=== PATIENT | male | born 2000 ===

== ENCOUNTER 2018-05-30 19:07 | Emergency (ER) | payer BC, OTHER ==
[2018-05-30] MEDS ORDERED: LORazepam TAB(*) 1 MG PO ONE (19:27)
--- NOTE | 2018-05-30 19:32 | ED ---
Psychiatric Complaint - HPI Summary HPI Summary: 17-year-old male presents with anxiety to the ED today. He states that he woke up and started having this chest pressure and feeling shaky. he felt like he had palpitations. States he's had this before but never this bad. States that his symptoms are intermittent. Does not change when takes a deep breath. He denies any shortness breath. No abdominal pain. No nausea vomiting. He denies any known triggers. He has history of anxiety and depression and arthritis. He denies any suicidal or homicidal ideation. he has no plan. He has no family history of blood clots or cardiac disease. no recent illness. Nothing makes his symptoms better or worse. No recent travel. denies any current drug or ETOH use. patient is voluntary and does not want a mental health exam at this time. - History Of Current Complaint Chief Complaint: EDPsychosocial Time Seen by Provider: 05/30/18 19:22 - Allergies/Home Medications Allergies/Adverse Reactions: Allergies Allergy/AdvReac Type Severity Reaction Status Date / Time No Known Allergies Allergy Verified 05/30/18 19:11 Home Medications: Home Medications Etanercept [Enbrel] 25 mg SUBCUT WEEKLY 05/30/18 [History Confirmed 05/30/18] PMH/Surg Hx/FS Hx/Imm Hx Endocrine/Hematology History: Denies: Hx Anticoagulant Therapy Musculoskeletal History: Reports: Hx Arthritis Psychiatric History: Reports: Hx Anxiety, Hx Depression Infectious Disease History: No Infectious Disease History: Denies: Traveled Outside the [place] in Last 30 Days - Family History Known Family History: Negative: Cardiac Disease - Social History Alcohol Use: Occasionally Substance Use Type: Reports: Marijuana Substance Use Comment - Amount & Last Used: occasional marijuana smoker Smoking Status (MU): Never Smoked Tobacco Review of Systems Negative: Fever Positive: Chest Pain. Negative: Palpitations Negative: Shortness Of Breath, Cough Neurological: Other - shaky Positive: Anxious All Other Systems Reviewed And Are Negative: Yes Physical Exam Triage Information Reviewed: Yes Vital Signs On Initial Exam: Initial Vitals Temp Pulse Resp BP Pulse Ox 98.8 F 67 18 139/75 100 05/30/18 19:09 05/30/18 19:09 05/30/18 19:09 05/30/18 19:09 05/30/18 19:09 Vital Signs Reviewed: Yes Appearance: Positive: Well-Appearing Skin: Positive: Warm, Dry Head/Face: Positive: Normal Head/Face Inspection Eyes: Positive: Normal, EOMI, DARRIN, Conjunctiva Clear ENT: Positive: Normal ENT inspection, Pharynx normal, TMs normal Respiratory/Lung Sounds: Positive: Clear to Auscultation, Breath Sounds Present , Other - reproducible chest pain Cardiovascular: Positive: Normal, RRR Abdomen Description: Positive: Nontender, Soft Bowel Sounds: Positive: Present Musculoskeletal: Positive: Normal Neurological: Positive: Normal Psychiatric: Positive: Normal Diagnostics - Vital Signs Vital Signs Temp Pulse Resp BP Pulse Ox 05/30/18 19:09 98.8 F 67 18 139/75 100 - Laboratory Result Diagrams: 05/30/18 20:10 05/30/18 20:10 Lab Statement: Any lab studies that have been ordered have been reviewed, and results considered in the medical decision making process. - EKG No standard instances Cardiac Rate: NL EKG Rhythm: Sinus Rhythm Summary of EKG Findings: sinus rhythm, early repolization Re-Evaluation - Re-Evaluation First Eval Re-Evaluation Time: 19:41 Comment: discussed still denying any SI or HI Second Eval Re-Evaluation Time: 20:57 Change: Improved Comment: symptoms resolved Course/Dx - Course Course Of Treatment: 17-year-old male presents with anxiety to the ED today. He states that he woke up and started having this chest pressure and feeling shaky. States he's had this before but never this bad. States that his symptoms are intermittent. Does not change when takes a deep breath. He denies any shortness breath. felt like had palpitations. No abdominal pain. No nausea vomiting. He denies any known triggers. He has history of anxiety and depression and arthritis. He denies any suicidal or homicidal ideations. He has no family history of blood clots or cardiac disease. no recent illness. Nothing makes his symptoms better or worse. No recent travel. On exam has reproducible chest pain. Lungs clear to auscultation. Heart regular rate and rhythm. Appears anxious. Gave Ativan and symptoms resolved. wbc normal. troponin zero. ekg shows early repolization. will discharge with hydroxyzine as needed for anxiety. told follow up with IC. patient understand and agrees with plan. - Differential Dx/Clinical Impression Differential Diagnosis/HQI/PQRI: Positive: Anxiety, Other - costochroncitis, DE Provider Diagnosis: Anxiety, Chest pressure Discharge - Sign-Out/Discharge Documenting (check all that apply): Patient Departure Patient Received Moderate/Deep Sedation with Procedure: No - Discharge Plan Condition: Good Disposition: HOME Patient Education Materials: Anxiety (ED) Referrals: BLANE Sevilla [, APPLICATION, OTHER] - Additional Instructions: Practice deep breathing Take hydroxyzine up to three tablets daily Follow up with ivory singer Return to ED if develop any new or worsening symptoms - Billing Disposition and Condition Condition: GOOD Disposition: Home
[2018-05-30 20:20] LABS: ABS Basophils 0.1 10^3/ul (0-0.2); ABS Eosinophils 0 10^3/ul (0-0.6); ABS Lymphocytes 2.3 10^3/ul (1.0-4.8); ABS Monocytes 0.6 10^3/ul (0-0.8); ABS Neutrophils 3.4 10^3/ul (1.5-7.7); ABS Nucleated RBC 0 10^3/ul; Eosinophil % 0.5 %; Hematocrit 42 % (36-46); Hemoglobin 14.4 g/dL (14.0-18.0); Lymphocyte % 35.6 %; Mean Corpuscular HGB Conc 34 g/dL (31-36); Mean Corpuscular Hemoglobin 30 pg (27-31); Mean Corpuscular Volume 88 fL (80-94); Mean Platelet Volume 7.9 fL (7.4-10.4); Nucleated Red Blood Cells % 0.1; Platelet Count 211 10^3/uL (150-450); Red Blood Count 4.79 10^6 /uL (4.18-5.48); Red Cell Distribution Width 13 % (10.5-15); White Blood Count 6.5 10^3/uL (3.5-10.8)
[2018-05-30 20:39] LABS: Albumin 4.4 g/dL (3.2-5.2); Albumin/Globulin Ratio 1.8 (1-3); BUN/Creatinine Ratio 10.3 (8-20); Calcium 9.3 mg/dL (8.6-10.3); EGFR African American 136.8 (>60); Globulin 2.5 g/dL (2-4); Potassium 3.7 mmol/L (3.5-5.0); Total Bilirubin 0.4 mg/dL (0.2-1.0); Total Protein 6.9 g/dL (6.4-8.9)
[2018-05-30 21:26] VITALS: BP 135/89
[2018-05-30 21:32] LABS: TSH (Thyroid Stimulating Horm) 0.79 mcIU/mL (0.34-5.60)
== END 2018-05-30 21:42 | disposition home or self-care (01) ==
LOC: ED 19:07
DX: F41.9 Anxiety disorder, unspecified (principal); R07.9 Chest pain, unspecified; R94.31 Abnormal electrocardiogram [ECG] [EKG]; M19.90 Unspecified osteoarthritis, unspecified site
CPT/HCPCS: 36415; 80053; 84443; 84484; 85025; 93005; 99283; A9270-GY